=== PATIENT | female | born 1945 | race Caucasian/White ===

== ENCOUNTER 2021-03-17 09:48 | Emergency (ER) | payer MEDICARE, OTHER, SELFPAY ==
[2021-03-17 09:50] VITALS: BP 159/71; PULSE 87; RESP 18; TEMP 36.7; O2SAT 98
[2021-03-17 09:55] VITALS: BP 159/71; PULSE 88; O2SAT 98
[2021-03-17 10:00] VITALS: BP 157/65; PULSE 81; RESP 20; O2SAT 98
--- NOTE | 2021-03-17 10:18 | DI.RAD.S_ITS ---
PROCEDURE: XR CHEST 2V INDICATIONS: shortness of breath TECHNIQUE: 2 views of the chest were acquired. COMPARISON: None. FINDINGS: Surgical changes and devices: Cholecystectomy clips. Lungs and pleura: Lungs are clear. No pleural effusions or pneumothorax. Mediastinum: Mediastinal contours are normal. Heart size is normal. Bones and chest wall: No suspicious bony abnormalities. Soft tissues appear unremarkable. IMPRESSION: No evidence acute pulmonary process. Dictated by: Sinan Logan M.D. on 03/17/2021 at 10:40 Approved by: Sinan Logan M.D. on 03/17/2021 at 10:40
[2021-03-17 10:33] LABS: Lactate (Lactic Acid) 1.3 mmol/L (0.7-2.1)
[2021-03-17 10:35] VITALS: PULSE 83; RESP 38; O2SAT 96
[2021-03-17 10:35] LABS: Alanine Aminotransferase 28 IU/L (<35); Albumin Globulin Ratio 1.2 (1.0-2.8); Alkaline Phosphatase 87 U/L (38-126); Aspartate Aminotransferase 36 IU/L (14-36); Bilirubin Total 0.6 mg/dL (0.2-1.3); Blood Urea Nitrogen 15 mg/dL (7-17); Calcium 9.1 mg/dL (8.4-10.2); Carbon Dioxide 23 mmol/L (22-32); Chloride 105 mmol/L (98-107); Estimated Glomerular Filt Rate 41.7 mL/min (>60); Globulin 3.4 g/dL (1.7-4.1); Glucose 111 mg/dL (80-110); HEMOLYSIS 19 (0-50); Potassium 3.6 mmol/L (3.4-5.1); Sodium 137 mmol/L (137-145); Total Protein 7.4 g/dL (6.3-8.2)
[2021-03-17 10:36] VITALS: BP 143/65; PULSE 83; RESP 30; O2SAT 97
[2021-03-17 10:40] LABS: Hematocrit 34.2 % (36-46); Hemoglobin 11.5 g/dL (12.0-16.0); Mean Corpuscular HGB Conc 33.5 % (30-36); Mean Corpuscular Hemoglobin 31.1 PG (26-34); Mean Corpuscular Volume 92.9 fL (80-100); Platelet Count 314 X10^3/uL (150-400); Red Blood Cell Count 3.69 X10^6/uL (4.0-5.2); Red Cell Distribution Width 14.5 % (11.6-14.8); White Blood Cell Count 7.4 X10^3/uL (4.5-11.0)
[2021-03-17 10:43] LABS: NT-proBNP (BNP-Adult 18+) 1830 pg/mL (<450)
[2021-03-17 10:47] LABS: Bacteria Urine None Seen; RBC Urine None Seen (0-5/HPF)
--- NOTE | 2021-03-17 10:54 | ED_ITS ---
HPI - Extremity Problem General Chief complaint: Extremity Problem,Nontraumatic Stated complaint: acute kidney disease, legs are swollen Time Seen by Provider: 03/17/21 10:20 Source: patient and family Mode of arrival: Ambulatory Limitations: no limitations History of Present Illness HPI Narrative: 76-year-old female who was just recently discharged from the hospital after having what sounds like urosepsis. She is still on antibiotics. [place] this area [place]. After having a car ride to here she had lower extremity swelling. She contacted her doctor who told her to come to the emergency department for evaluation. No chest pain. No shortness of breath. No other issues except for the swelling in the lower extremities. She was also concerned about her kidneys as she has known kidney disease peer Related Data Previous Rx's Medication Instructions Recorded furosemide 20 mg tablet (Lasix) 20 mg PO DAILY 3 Days #3 tab 03/17/21 Allergies Allergy/AdvReac Type Severity Reaction Status Date / Time No Known Drug Allergies Allergy Verified 03/17/21 10:08 Review of Systems Constitutional Constitutional: Denies fever(s) Cardiovascular Cardiovascular: Denies chest pain and Denies dyspnea Respiratory Respiratory: Denies dyspnea Gastrointestinal Gastrointestinal: Denies abdominal pain Musculoskeletal Comments: Lower extremity edema Integumentary/Breasts Skin/Breast: Reports system reviewed and no additional complaints, except as documented Neurologic Neurologic: Reports system reviewed and no additional complaints, except as documented Hematologic/Lymphatic On Anticoagulants: No Allergic/Immunologic Allergic/Immunologic: Reports system reviewed and no additional complaints, exc ept as documented Patient History Medical History Acute kidney injury Social History Smoking Status: Never smoker Smoking Status: Never smoker alcohol intake frequency: a few times a week Substance Use Type: does not use Exam Initial Vital Signs Initial Vital Signs: Vital Signs Temperature 98.1 F 03/17/21 09:50 Pulse Rate 87 03/17/21 09:50 Respiratory Rate 18 03/17/21 09:50 Blood Pressure 159/71 H 03/17/21 09:50 Pulse Oximetry 98 03/17/21 09:50 Const General: cooperative and comfortable HENMT Head: normal to inspection and normocephalic Resp Effort & Inspection: normal respiratory effort Auscultation: clear to auscultation bilaterally Cardio Rate: regular rate GI Inspection: normal to inspection Skin General: no rashes or lesions noted Neuro General: patient alert, patient awake and patient oriented x3 Extrem Other: Mild lower extremity edema from the ankles to the knees. Equal bilateral. Psych Appearance: grossly normal and well kempt Course Orders Ordered: ED Orders 03/17/21 10:00 Complete Blood Count AUTO DIFF Stat Comprehensive Metabolic Panel Stat Lactate (Lactic Acid) Stat NT-proBNP (BNP-Adult 18+) Stat 03/17/21 10:18 XR chest 2V Stat EKG-12 Lead Stat 03/17/21 10:43 Urine Microscopic Stat Vital Signs Vital signs: Vital Signs - 8 hr 03/17/21 09:50 Temperature 98.1 F Pulse Rate 87 Respiratory Rate 18 Blood Pressure 159/71 H Pulse Oximetry 98 MDM - Extremity (Nontraumatic) Lab Data Result diagrams: 03/17/21 10:00 03/17/21 10:00 Labs: Lab Results 03/17/21 03/17/21 03/17/21 Range/Units 10:00 10:00 10:00 WBC 7.4 (4.5-11.0) X10^3/uL RBC 3.69 L (4.0-5.2) X10^6/uL Hgb 11.5 L (12.0-16.0) g/dL Hct 34.2 L (36-46) % MCV 92.9 (80-100) fL MCH 31.1 (26-34) PG MCHC 33.5 (30-36) % RDW 14.5 (11.6-14.8) % Plt Count 314 (150-400) X10^3/uL Sodium 137 (137-145) mmol/L Potassium 3.6 (3.4-5.1) mmol/L Chloride 105 (98-107) mmol/L Carbon Dioxide 23 (22-32) mmol/L BUN 15 (7-17) mg/dL Creatinine 1.25 H (0.52-1.04) mg/dL Estimated GFR 41.7 L (>60) mL/min BUN/Creatinine Ratio 12.0 (6-22) Glucose 111 H (80-110) mg/dL Lactate (0.7-2.1) mmol/L Calcium 9.1 (8.4-10.2) mg/dL Total Bilirubin 0.6 (0.2-1.3) mg/dL AST 36 (14-36) IU/L ALT 28 (<35) IU/L Alkaline Phosphatase 87 (38-126) U/L NT-Pro-B Natriuret Pep 1830 H (<450) pg/mL Total Protein 7.4 (6.3-8.2) g/dL Albumin 4.0 (3.5-5.0) g/dL Globulin 3.4 (1.7-4.1) g/dL Albumin/Globulin Ratio 1.2 (1.0-2.8) / Range/Units 10:00 WBC (4.5-11.0) X10^3/uL RBC (4.0-5.2) X10^6/uL Hgb (12.0-16.0) g/dL Hct (36-46) % MCV (80-100) fL MCH (26-34) PG MCHC (30-36) % RDW (11.6-14.8) % Plt Count (150-400) X10^3/uL Sodium (137-145) mmol/L Potassium (3.4-5.1) mmol/L Chloride (98-107) mmol/L Carbon Dioxide (22-32) mmol/L BUN (7-17) mg/dL Creatinine (0.52-1.04) mg/dL Estimated GFR (>60) mL/min BUN/Creatinine Ratio (6-22) Glucose (80-110) mg/dL Lactate 1.3 (0.7-2.1) mmol/L Calcium (8.4-10.2) mg/dL Total Bilirubin (0.2-1.3) mg/dL AST (14-36) IU/L ALT (<35) IU/L Alkaline Phosphatase (38-126) U/L NT-Pro-B Natriuret Pep (<450) pg/mL Total Protein (6.3-8.2) g/dL Albumin (3.5-5.0) g/dL Globulin (1.7-4.1) g/dL Albumin/Globulin Ratio (1.0-2.8) Urine Dip Bedside Urine Glucose Negative Bedside Urine Bilirubin - Negative Bedside Urine Ketone - Negative Urine Specific [place] 1.005 Bedside Urine Occult Blood - Negative Bedside Urine pH 6 Bedside Urine Protein - Negative Bedside Urine Urobilinogen - Negative Bedside Urine Nitrite - Negative Bedside Urine Leukocytes +/- 15 Esterase Imaging Data Chest x-ray: Radiologist's Impression: [address] [id number] ReportSigned Patient: Marga Lieberman#: [id number]: 5Acct:[id number]/Sex: 76 / FDate of Service: 03/17/21Loc: EDAccession Number: [id number] Procedure: XR chest 2V Ordering Provider: Gustavo Dela Cruz D.O. PROCEDURE: XR CHEST 2V INDICATIONS: shortness of breath TECHNIQUE: 2 views of the chest were acquired. COMPARISON: None. FINDINGS: Surgical changes and devices: Cholecystectomy clips. Lungs and pleura: Lungs are clear. No pleural effusions or pneumothorax. Mediastinum: Mediastinal contours are normal. Heart size is normal. Bones and chest wall: No suspicious bony abnormalities. Soft tissues appear unremarkable. IMPRESSION: No evidence acute pulmonary process. Dictated by: Sinan Logan M.D. on 03/17/2021 at 10:40 Approved by: Sinan Logan M.D. on 03/17/2021 at 10:40 ECG Data Attestation EKG: I personally reviewed and interpreted this ECG as follows: Interpretation: Sinus rhythm Ventricular rate is 78 Normal axis Normal QRS QTC No ST T wave changes MDM Narrative Medical decision making narrative: Patient is afebrile. No chest pain. No shortness of breath. Labs fairly unremarkable. Does have equal swelling bilateral lower extremities without signs of cellulitis. I have low suspicion for DVT. I do suspect that the lower extremity swelling is because of the immobility over the past couple days. We will start her on Lasix for the next 3 days to help with this. She was also informed to stay hydrated. No further workup knee the emergency department. She was given return precautions follow- up instructions she expressed understanding and agreement. Discharge Plan Departure Patient Disposition: Home Clinical Impression: Lower extremity edema Instructions: DI for Peripheral Edema -- Bilateral Activity Restrictions/Additional Instructions: We will start you on a diuretic for the next 3 days. Start taking as directed. Keep all of your scheduled medical appointments. Continue the antibiotics as directed. Return to the emergency department for any new or worsening symptoms Prescriptions: New furosemide [Lasix] 20 mg tablet 20 mg PO DAILY 3 Days Qty: 3 RF: 0 Referrals: Miscellaneous,Doctor, MD [Primary Care Provider] -
[2021-03-17 10:59] LABS: Culture Indicated Urine Cult Not Indicated; Squamous Epithelial Cell Urine 5-10 /HPF (0-5/HPF); WBC Urine 5-10/HPF (0-5/HPF)
[2021-03-17 11:28] LABS: Add Manual Diff / Slide Review YES
[2021-03-17 11:33] LABS: RBC Morphology Normal Morphology; Total Cells Counted 100
[2021-03-17 11:34] LABS: Neutrophils Absolute Manual 4884 /uL (3000-5900)
== END 2021-03-17 11:14 | disposition home or self-care (01) ==
PROVIDERS: Emergency Provider Emergency Medicine
DX: R60.0 Localized edema (principal); R03.0 Elevated blood-pressure reading, without diagnosis of hypertension
CPT/HCPCS: 36415; 71046; 80053; 81003; 81015; 83605; 83880; 85007; 85025; 93005; 93010; 99283; 99284